=== PATIENT | female | born 1995 | race Caucasian/White ===

== ENCOUNTER 2023-04-02 21:20 | Emergency (ER) | payer OTHER ==
[~2023-04-02] VITALS: Ht 152.4 cm; Wt 74.8 kg
[2023-04-02 21:29] VITALS: BP 157/99
== END 2023-04-02 23:03 | disposition home or self-care (01) ==
LOC: ER 21:20
DX: L25.9 Unspecified contact dermatitis, unspecified cause (principal); S90.862A Insect bite (nonvenomous), left foot, initial encounter; W57.XXXA Bitten or stung by nonvenomous insect and other nonvenomous arthropods, initial encounter
CPT/HCPCS: 99282

== ENCOUNTER 2023-08-10 23:34 | Emergency (ER) | payer OTHER ==
[~2023-08-10] VITALS: Ht 152.4 cm; Wt 72.6 kg
[2023-08-11] MEDS ORDERED: Tessalon200 MG PO (00:40)
[2023-08-11 01:00] VITALS: BP 137/99
== END 2023-08-11 01:25 | disposition home or self-care (01) ==
LOC: ER 23:34
DX: J06.9 Acute upper respiratory infection, unspecified (principal)
CPT/HCPCS: 71046; 94640; 94664; 99284-25